=== PATIENT | female | born 1975 | race Caucasian/White ===

== ENCOUNTER 2016-12-25 20:13 | Emergency (ER) | payer BC ==
[~2016-12-25] VITALS: Ht 162.6 cm; Wt 66.5 kg
[~2016-12-25 20:13] MED LIST: NO HOME MEDS
[2016-12-25] MEDS ORDERED: CELEXA20 MG PO (21:05)
[2016-12-25 21:50] LABS: HEMATOCRIT 33.5 % (36.0-46.0); MCHC 33.4 G/DL (30.0-36.0); MCV 86.8 FL (83-99); MEAN PLAT.VOLUME 10.5 uM^3 (9.5-12.4); PLATELET COUNT 172 K/uL (156-360); RBC DIS.WIDTH-CV 12.4 % (11.8-14.6); RBC DIS.WIDTH-SD 38.2 % (39-53); RED BLOOD COUNT 3.86 M/uL (3.80-5.20); WHITE BLOOD COUNT 6.5 K/uL (4.1-10.2)
[2016-12-25 22:00] LABS: CHLORIDE 107 mEq/L (99-109); POTASSIUM 4.3 mEq/L (3.7-5.4); SODIUM 140 mEq/L (136-147)
[2016-12-25 22:02] LABS: GLUCOSE 98 mg/dL (70-99)
[2016-12-25 22:03] LABS: ANION GAP 7 MEQ/L (2-14)
[2016-12-25 22:06] LABS: GFR ESTIMATE (CALCULATED) > 59 mL/min/
[2016-12-25 22:07] LABS: UREA NITROGEN (BUN) 11 mg/dL (9-23)
[2016-12-25 22:09] LABS: SALICYLATE < 5.0 MG/DL (15-30)
[2016-12-25 23:09] LABS: AMPHETAMINES QUANT VALUE 0 NG/ML; BARBITUATES QUANT VALUE 0 NG/ML; BENZODIAZEPINES, URINE SCREEN POSITIVE (200 ng/mL); MARIJUANA QUANT VALUE 0 NG/ML; PHENCYCLIDINE QUANT VALUE 0 NG/ML
[2016-12-25 23:17] VITALS: BP 111/70
== END 2016-12-25 23:19 | disposition home or self-care (01) ==
LOC: EME 20:13
PROVIDERS: Emergency Medicine
DX: T40.601A Poisoning by unspecified narcotics, accidental (unintentional), initial encounter (principal); F11.10 Opioid abuse, uncomplicated; Z72.0 Tobacco use
CPT/HCPCS: 80048; 80306 90; 85027; 99281; 99284; G0480; J2310